=== PATIENT | female | born 1975 | race Hispanic/Latino ===

== ENCOUNTER 2017-03-08 16:11 | Emergency (ER) | payer MEDICAID, OTHER ==
[2017-03-08 16:12] VITALS: BMI 29.4
[2017-03-08 16:32] VITALS: BP 65/43; PULSE 81; RESP 20; TEMP 98.2; O2SAT 98
[2017-03-08] MEDS ORDERED: Sodium Chloride 0.9% 1,000 ML IV STA (16:40)
--- NOTE | 2017-03-08 16:55 | ED PDOC ---
HPI: General Adult Time Seen by Provider: 03/08/17 16:15 Chief Complaint (Nursing): Lower Extremity Problem/Injury History Per: Patient (is brought by EMS after complaint of fall at home. Patient states headache, and right knee pain. She denies fever or chills. She denies hearing voices, SI, HI. She c/o being very thirsty. Patient is in Methadone program. States that she has takne her daily 80mg already.), Other History/Exam Limitations: other (h/o mental illness) Onset/Duration Of Symptoms: Unknown Past Medical History Reviewed: Historical Data, Nursing Documentation, Vital Signs Vital Signs: Last Vital Signs Temp 98.2 F 03/08/17 16:19 Pulse 81 03/08/17 16:19 Resp 20 03/08/17 16:19 BP 65/43 L 03/08/17 16:19 Pulse Ox 98 03/08/17 16:57 - Medical History PMH: HTN, Seizures - Family History Family History: States: Unknown Family Hx - Living Arrangements Living Arrangements: With Family - Social History Current smoker - smoking cessation education provided: No - Home Medications Home Medications: Ambulatory Orders Medication Instructions Recorded Alprazolam [Xanax] 2 mg PO TID 07/31/15 Carvedilol [Coreg] 3.125 mg PO DAILY 07/31/15 DULoxetine [Cymbalta] 30 mg PO DAILY 07/31/15 Diphenhydramine Hydrochlorid 25 mg PO BID 07/31/15 [Benadryl] Levetiracetam [Keppra] 1,000 mg PO BID 07/31/15 Gabapentin [Neurontin] 600 mg PO TID #12 tablet 03/08/17 - Allergies Allergies/Adverse Reactions: Allergies Allergy/AdvReac Type Severity Reaction Status Date / Time No Known Allergies Allergy Unverified 07/31/15 16:11 Review of Systems ROS Statement: Except As Marked, All Systems Reviewed And Found Negative Constitutional: Negative for: Fever Cardiovascular: Positive for: Chest Pain Gastrointestinal: Negative for: Nausea, Vomiting, Abdominal Pain Musculoskeletal: Positive for: Leg Pain (right knee) Neurological: Positive for: Headache Physical Exam - Reviewed Nursing Documentation Reviewed: Yes Vital Signs Reviewed: Yes - Physical Exam Appears: Positive for: Well, Non-toxic, No Acute Distress Head Exam: Positive for: ATRAUMATIC, NORMAL INSPECTION, NORMOCEPHALIC Skin: Positive for: Normal Color, Warm, DRY Eye Exam: Positive for: EOMI, Normal appearance, PERRL ENT: Positive for: Normal ENT Inspection Neck: Positive for: Normal, Painless ROM Cardiovascular/Chest: Positive for: Regular Rate, Rhythm Respiratory: Positive for: CNT, Normal Breath Sounds Gastrointestinal/Abdominal: Positive for: Normal Exam, Bowel Sounds, Soft Back: Positive for: Normal Inspection Extremity: Positive for: Normal ROM Neurologic/Psych: Positive for: Alert, Oriented - Laboratory Results Result Diagrams: 03/08/17 17:45 03/08/17 17:45 - ECG O2 Sat by Pulse Oximetry: 98 Medical Decision Making Medical Decision Making: x-ray reports reviewed. CT head images reviewed. NO acute findings. Patient asking for methadone. Per report, she has already received her dose today. She states that she lost her neurontin and would like to get an rx for this. Disposition - Clinical Impression Clinical Impression: Fall - Patient ED Disposition Is Patient to be Admitted: No Doctor Will See Patient In The: Office Counseled Patient/Family Regarding: Diagnosis, Need For Followup, Rx Given - Disposition Disposition: Routine/Home Disposition Time: 18:15 Condition: STABLE Prescriptions: Gabapentin [Neurontin] 600 mg PO TID #12 tablet Instructions: Fall Prevention (ED) Forms: [facility] (Tongan) - POA Present On Arrival: Falls Or Trauma
--- NOTE | 2017-03-08 17:35 | RAD ---
PROCEDURE: Radiographs of the pelvis. HISTORY: h/o fall COMPARISON: None. FINDINGS: BONES: Pelvic Bones: The pelvic ring is intact. Hips: No acute displaced fracture. JOINTS: Sacroiliac Joints: Unremarkable. Pubic Symphysis: Unremarkable. OTHER FINDINGS: None. IMPRESSION: No acute displaced fracture or dislocation. Please note occult fractures cannot be excluded on plain radiographs. If there is a persistent clinical concern, an MRI of the hip may be performed for further evaluation.
--- NOTE | 2017-03-08 17:36 | RAD ---
PROCEDURE: Right Knee Radiographs. HISTORY: h/o fall COMPARISON: None. FINDINGS: BONES: Normal alignment. No acute fracture. 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 There are patellar osteophytes. JOINT EFFUSION: None. OTHER FINDINGS: None. IMPRESSION: No acute fracture or dislocation.
[2017-03-08 17:59] LABS: BASO # 0.1 K/uL (0.0-0.2); BASO % 0.6 % (0.0-2.0); EOS # 0.1 K/uL (0.0-0.7); EOS % 1.2 % (0.0-4.0); HEMATOCRIT 40.5 % (34.0-47.0); LYMPH # 2.8 K/uL (1.0-4.3); LYMPH % 31.1 % (20.0-40.0); MEAN CELL VOLUME 86.7 fl (81.0-99.0); MEAN CORPUSCULAR HEMOGLOBIN 29.2 pg (27.0-31.0); MEAN CORPUSCULAR HGB CONC 33.7 g/dL (33.0-37.0); MEAN PLATELET VOLUME 7.8 fl (7.2-11.7); MONO # 0.5 K/uL (0.0-0.8); NEUT # 5.5 K/uL (1.8-7.0); NEUT % 61.1 % (50.0-75.0); NRBC % 0.1 % (0.0-0.0); RED CELL DISTRIBUTION WIDTH 13.3 % (11.5-14.5)
[2017-03-08 18:10] LABS: ALCOHOL SERUM < 10 mg/dl (0-10); BLOOD UREA NITROGEN 11 mg/dl (7-17); CALCIUM 9.4 mg/dL (8.4-10.2); CARBON DIOXIDE 26 mmol/L (22-30); CHLORIDE 105 mmol/L (98-107); GFR AFRICAN-AMERICAN > 60; GLUCOSE,RANDOM 87 mg/dL (65-105); SODIUM 139 mmol/l (132-148)
[2017-03-08 18:20] LABS: POTASSIUM 4.4 MMOL/L (3.6-5.0)
[2017-03-08] MEDS ORDERED: Naproxen 500 MG TAB PO ONE (18:38)
--- NOTE | 2017-03-08 18:47 | CT ---
EXAM: CT Head Without Intravenous Contrast EXAM DATE/TIME: 03/08/2017 4:38 PM CLINICAL HISTORY: 41 years old, female; Injury or trauma; Fall; Initial encounter; Laceration; Without loss of consciousness; Without residual foreign body; Head, generalized; Injury date: Today; Injury details: S/P fallling monet's lower ext pain. Psych evaluation. Pt on methadone tx. HTN seizures depression; Additional info: Headache TECHNIQUE: Axial computed tomography images of the head/brain without intravenous contrast. All CT scans at this facility use one or more dose reduction techniques, viz.: automated exposure control; ma/kV adjustment per patient size (including targeted exams where dose is matched to indication; i.e. head); or iterative reconstruction technique. Coronal and sagittal reformatted images were created and reviewed. COMPARISON: CT HEAD OR BRAIN W/O CONT 02/12/2012 1:20:55 PM FINDINGS: Brain: Ventricles are normal in size and configuration. There is no midline shift. There is mild prominence of sulci and gyri. There are no intra-axial or extra-axial mass lesions or areas of hemorrhage. There are no abnormal fluid collections. Saleem-white differentiation is maintained. Ventricles: See above. Bones: Cranial vault is intact. There are postsurgical changes in the left bony orbit. Soft tissues: unremarkable Sinuses: There is no acute sinusitis. Ears and mastoids: Middle ears and mastoids are unremarkable Orbits: Globes are intact. Retrobulbar structures are symmetric. IMPRESSION: No acute intracranial abnormality
--- NOTE | 2017-03-10 11:06 | CARD ---
APPROVED REPORT EKG Measurement Heart [id number] <Conclusion> Sinus bradycardia Otherwise normal ECG
== END 2017-03-08 19:22 | disposition home or self-care (01) ==
LOC: H.ER 16:11
DX: S09.90XA Unspecified injury of head, initial encounter (principal); M25.561 Pain in right knee; W19.XXXA Unspecified fall, initial encounter; Y92.89 Other specified places as the place of occurrence of the external cause; I10 Essential (primary) hypertension; G40.909 Epilepsy, unspecified, not intractable, without status epilepticus
CPT/HCPCS: 70450; 72170; 73562; 80048; 80320; 81025; 85025; 93005; 96360; 99283; J7040